=== PATIENT | female | born 1940 | race Asian ===

== ENCOUNTER 2018-05-12 23:00 | Inpatient (IN) | payer OTHER, MEDICARE ==
[~2018-05-12] VITALS: Ht 152.4 cm; Wt 78.0 kg
[~2018-05-12 23:00] MED LIST: AMLO5TAB4 PO; CLOP75TA2 PO; HYDR25TA4 PO; LOVA20TA2 PO; METO25TA6 PO; SYN75 PO
[2018-05-12 23:20] VITALS: BP_SYST 132
[2018-05-12 23:50] LABS: BASOPHILS % (AUTO) 0.3 % (0.0-2.0); EOSINOPHILS # (AUTO) 0.4 K/uL (0.0-0.4); EOSINOPHILS % (AUTO) 2.8 % (0.0-4.0); HEMATOCRIT 46.1 % (36-48); HEMOGLOBIN 15.4 g/dL (12.0-16.0); LYMPHOCYTES # (AUTO) 2.4 K/uL (1.0-5.5); LYMPHOCYTES % (AUTO) 18.1 % (20.5-51.5); MEAN CORPUSCULAR HEMOGLOBIN 30 pg (27-31); MEAN CORPUSCULAR HGB CONC 34 % (32-36); MEAN CORPUSCULAR VOLUME 88 fL (79.0-98.0); MONOCYTES # (AUTO) 1.1 K/uL (0.0-1.0); MONOCYTES % (AUTO) 8.4 % (1.7-9.3); NEUTROPHILS # (AUTO) 9.1 K/uL (1.8-7.7); NEUTROPHILS % (AUTO) 70.4 % (40.0-70.0); PLATELET COUNT (AUTO) 380 K/uL (130-430); RED BLOOD CELL COUNT(AUTO) 5.24 MIL/uL (4.2-6.2); RED CELL DISTRIBUTION WIDTH 12.2 % (9.0-15.0)
[2018-05-13] MEDS ORDERED: fentaNYL CITRATE/PF 100 MCG/2 ML AMP IVP ONE
[2018-05-13 00:07] LABS: ANION GAP 6 (5-15); CALCIUM 8.3 mg/dL (8.4-11.0); CHLORIDE 93 mmol/L (98-107); CREATININE 1.05 mg/dL (0.55-1.30); GLUCOSE 195 mg/dL (70-99); POTASSIUM 3.6 mmol/L (3.5-5.1); SODIUM SERUM 128 mmol/L (136-145); UREA NITROGEN, BLOOD 25 mg/dL (8-21)
[2018-05-13 00:12] LABS: PROTHROMBIN TIME 10.5 SECS (9.5-12.5)
[2018-05-13 00:13] LABS: ALANINE AMINOTRANSFERASE 24 U/L (12-78); ASPARTATE AMINOTRANSFERASE 15 U/L (10-37); TOTAL BILIRUBIN 0.7 mg/dL (0.0-1.0)
[2018-05-13] MEDS ORDERED: ONDANSETRON HCL 4 MG/2 ML VIAL IVP ONE (00:30)
[2018-05-13] MEDS ORDERED: ONDANSETRON HCL 4 MG/2 ML VIAL ONE (00:34)
[2018-05-13] MEDS ORDERED: LEVOFLOXACIN 500 MG/D5W 100 ML IV ONE (00:45)
[2018-05-13] MEDS ORDERED: ASPI-1153 PO (01:04)
[2018-05-13] MEDS ORDERED: LEVO100T9 PO (01:04)
[2018-05-13] MEDS ORDERED: NOR10 PO (01:04)
[2018-05-13] MEDS ORDERED: METO25TA6 PO (01:04)
[2018-05-13] MEDS ORDERED: ATOR10TA68 PO (01:04)
[2018-05-13] MEDS ORDERED: LOSA1TAB43 PO (01:04)
[2018-05-13 01:09] LABS: BILIRUBIN,URINE NEGATIVE (NEGATIVE); BLOOD, URINE NEGATIVE (NEGATIVE); CLARITY/URINE CLEAR (CLEAR); COLOR,URINE YELLOW (YELLOW); GLUCOSE,URINE NEGATIVE (NEGATIVE); KETONES,URINE NEGATIVE (NEGATIVE); LEUKOCYTE ESTERASE ,URINE NEGATIVE (NEGATIVE); NITRITE, URINE NEGATIVE (NEGATIVE); PROTEIN URINE NEGATIVE (NEGATIVE); UROBILINOGEN,URINE 0.2 (0.2-1.0)
[2018-05-13] MEDS ORDERED: ONDANSETRON HCL 4 MG/2 ML VIAL IVP PRN (01:15)
[2018-05-13] MEDS ORDERED: IPRATROPIUM/ALBUTEROL SULFATE 3 ML AMPUL.NEB (DUONEB) INH PRN ×2 (01:15)
[2018-05-13] MEDS ORDERED: ACETAMINOPHEN 325 MG TABLET PO PRN (01:15)
[2018-05-13 01:31] VITALS: BP_SYST 116
[2018-05-13 02:02] VITALS: BP_SYST 149
[2018-05-13 07:08] LABS: BASOPHILS # (AUTO) 0.1 K/uL (0.0-0.2); BASOPHILS % (AUTO) 0.8 % (0.0-2.0); EOSINOPHILS # (AUTO) 0.3 K/uL (0.0-0.4); EOSINOPHILS % (AUTO) 2.5 % (0.0-4.0); HEMATOCRIT 49.9 % (36-48); HEMOGLOBIN 16.7 g/dL (12.0-16.0); LYMPHOCYTES # (AUTO) 1.7 K/uL (1.0-5.5); MEAN CORPUSCULAR HEMOGLOBIN 30 pg (27-31); MEAN CORPUSCULAR HGB CONC 33 % (32-36); MEAN CORPUSCULAR VOLUME 89 fL (79.0-98.0); MONOCYTES # (AUTO) 0.9 K/uL (0.0-1.0); MONOCYTES % (AUTO) 6.8 % (1.7-9.3); NEUTROPHILS % (AUTO) 76.9 % (40.0-70.0); PLATELET COUNT (AUTO) 423 K/uL (130-430); RED BLOOD CELL COUNT(AUTO) 5.62 MIL/uL (4.2-6.2); RED CELL DISTRIBUTION WIDTH 12.2 % (9.0-15.0)
[2018-05-13 07:28] LABS: ANION GAP 8 (5-15); CALCIUM 8.4 mg/dL (8.4-11.0); CHLORIDE 88 mmol/L (98-107); CREATININE 0.81 mg/dL (0.55-1.30); GLUCOSE 133 mg/dL (70-99); POTASSIUM 3.7 mmol/L (3.5-5.1); SODIUM SERUM 126 mmol/L (136-145); UREA NITROGEN, BLOOD 21 mg/dL (8-21)
[2018-05-13 07:49] LABS: THYROID STIMULATING HORMONE 0.73 uIu/mL (0.36-3.74)
[2018-05-13] MEDS ORDERED: INSULIN LISPRO SLIDING SCALE 100 UNITS/ML VIAL (humaLOG) SUBCUT PRN (08:30)
[2018-05-13] MEDS ORDERED: AZITHROMYCIN 250 MG TABLET PO SCH (09:00)
[2018-05-13] MEDS ORDERED: LOSARTAN POTASSIUM 25 MG TABLET PO ONE (09:00)
[2018-05-13] MEDS ORDERED: ASPIRIN 325 MG TABLET PO SCH (09:00)
[2018-05-13] MEDS ORDERED: LEVOTHYROXINE SODIUM 0.1 MG TABLET PO ONE (09:00)
[2018-05-13] MEDS ORDERED: ASPIRIN 81 MG TABLET(ECOTRIN) PO ONE (09:00)
[2018-05-13] MEDS: cefTRIAXone 1 GM in D5W 50 ML IV SCH (09:50)
[2018-05-13] MEDS: amLODIPine BESYLATE 10 MG TABLET PO SCH (10:17)
[2018-05-13] MEDS ORDERED: INSULIN ASPART 100 UNITS/ML, 10 ML VIAL (NovoLOG) SUBCUT PRN (10:45)
[2018-05-13 11:28] VITALS: BP_SYST 137
[2018-05-13 15:35] VITALS: BP_SYST 142
[2018-05-13 20:44] VITALS: BP_SYST 140
[2018-05-13] MEDS ORDERED: ATORVASTATIN 10 MG TABLET PO SCH (21:00)
[2018-05-14 00:55] VITALS: BP_SYST 139
[2018-05-14] MEDS: amLODIPine BESYLATE 10 MG TABLET PO SCH (07:57)
[2018-05-14 07:58] LABS: ANION GAP 5 (5-15); CALCIUM 8.6 mg/dL (8.4-11.0); CHLORIDE 91 mmol/L (98-107); CREATININE 0.87 mg/dL (0.55-1.30); GLUCOSE 129 mg/dL (70-99); POTASSIUM 3.7 mmol/L (3.5-5.1); SODIUM SERUM 126 mmol/L (136-145); UREA NITROGEN, BLOOD 18 mg/dL (8-21)
[2018-05-14 08:04] LABS: ALANINE AMINOTRANSFERASE 20 U/L (12-78); ALBUMIN 2.9 g/dL (3.4-4.8); ASPARTATE AMINOTRANSFERASE 15 U/L (10-37); TOTAL BILIRUBIN 0.9 mg/dL (0.0-1.0)
[2018-05-14 08:05] LABS: BASOPHILS % (AUTO) 0.1 % (0.0-2.0); EOSINOPHILS # (AUTO) 0.3 K/uL (0.0-0.4); EOSINOPHILS % (AUTO) 2.4 % (0.0-4.0); HEMATOCRIT 46.2 % (36-48); HEMOGLOBIN 15.4 g/dL (12.0-16.0); LYMPHOCYTES # (AUTO) 2.2 K/uL (1.0-5.5); LYMPHOCYTES % (AUTO) 17.7 % (20.5-51.5); MEAN CORPUSCULAR HEMOGLOBIN 30 pg (27-31); MEAN CORPUSCULAR HGB CONC 33 % (32-36); MEAN CORPUSCULAR VOLUME 89 fL (79.0-98.0); MONOCYTES # (AUTO) 1.2 K/uL (0.0-1.0); MONOCYTES % (AUTO) 10.1 % (1.7-9.3); NEUTROPHILS # (AUTO) 8.5 K/uL (1.8-7.7); NEUTROPHILS % (AUTO) 69.7 % (40.0-70.0); PLATELET COUNT (AUTO) 399 K/uL (130-430); RED CELL DISTRIBUTION WIDTH 12.2 % (9.0-15.0); WHITE BLOOD COUNT (AUTO) 12.2 K/uL (4.8-10.8)
[2018-05-14] MEDS ORDERED: LEVOTHYROXINE SODIUM 0.1 MG TABLET PO SCH (09:00)
[2018-05-14] MEDS ORDERED: LOSARTAN POTASSIUM 25 MG TABLET PO SCH (09:00)
[2018-05-14] MEDS ORDERED: ASPIRIN 81 MG TABLET(ECOTRIN) PO SCH (09:00)
[2018-05-14 09:11] LABS: CHOLESTEROL 108 mg/dL (<200); HDL CHOLESTEROL 31 mg/dL (>55); LDL CHOLESTEROL 66 mg/dL (<100); TRIGLYCERIDES 125 mg/dL (30-150)
[2018-05-14] MEDS: cefTRIAXone 1 GM in D5W 50 ML IV SCH (10:38)
[2018-05-14 10:57] VITALS: BP_SYST 128
[2018-05-14 12:00] VITALS: BP_SYST 139
== END 2018-05-14 14:55 | disposition home or self-care (01) | DRG 312 ==
LOC: SED 23:00 → STU 05-13 01:05
PROVIDERS: ADMIT Internal Medicine; ATTEND Internal Medicine
DX: R55 Syncope and collapse (principal); E87.1 Hypo-osmolality and hyponatremia; E11.9 Type 2 diabetes mellitus without complications; E78.5 Hyperlipidemia, unspecified; I10 Essential (primary) hypertension; J44.9 Chronic obstructive pulmonary disease, unspecified; J40 Bronchitis, not specified as acute or chronic; F03.90 Unspecified dementia, unspecified severity, without behavioral disturbance, psychotic disturbance, mood disturbance, and anxiety; I25.10 Atherosclerotic heart disease of native coronary artery without angina pectoris; E66.9 Obesity, unspecified; E78.00 Pure hypercholesterolemia, unspecified; Z90.89 Acquired absence of other organs; Z95.1 Presence of aortocoronary bypass graft; Z79.899 Other long term (current) drug therapy; Z79.82 Long term (current) use of aspirin
CPT/HCPCS: 36415; 70450-TC; 71045; 80048; 80053; 80061; 81003; 83036; 83605; 83880; 84443-TC; 84484; 85025; 85610-TC; 85730-TC; 87040-TC; 93005; 93306; 93880; 96365; 96366; 96375; 99285; G0378; J0696; J1956; J2405; J3010; J7060